=== PATIENT | female | born 1940 | race Caucasian/White ===

== ENCOUNTER → 2016-11-21 | Outpatient (CLI) | payer OTHER ==
--- NOTE | 2016-11-21 11:14 | MA ---
Screening Digital Mammogram Clinical Indications: Routine screening. Personal history of left breast cancer. Sister with breast c ancer. Technique: Standard cephalocaudal and mediolateral oblique projections are obtained. This examinati on was processed by the [employer] computer aided detection system. Comparison: October 2015, 2014, 2013, 2012 and 2011 Breast density: C; The breast tissue is heterogeneously dense, which could obscure detection of small masses. Findings: CAD was reviewed. No suspicious findings are identified. There is stable post therapeutic changes in the left breast. Impression: BI-RADS 2. Benign mammogram.. Recommendation: Routine screening is recommended in one year, as long as physical examination is sal ign in this patient with moderately dense breast parenchyma. [facility] will send a result letter to the patient. Negative mammography should not preclude additional workup of a clinically suspicious finding. The patient's information is entered into a reminder system with a target due date for her next mammo gram.
--- NOTE | 2016-11-21 17:01 | DX ---
Four Views of the Lumbar Spine Standing; AP, Lateral, Flexion and Extension Views Reason for examination: Lower extremity pain possibly related to lumbar pathology. Evaluate for insta bility. Comparison to CT of the abdomen and pelvis performed December 24, 2010. Findings: Vertebral body heights are well maintained. There is a grade 2 anterolisthesis of L4 with respect to L5 estimated at 10 mm. This does not change with flexion or extension. The degree of anter ior displacement is unchanged compared to the CT from 2011. Additionally, there is facet hypertrophy extending from L2-L3 to the L5-S1 level. There is possible canal stenosis at L4-L5 resulting from fac et hypertrophy and spondylolisthesis. This could be further evaluated with MRI as clinically indicate d. Multiple surgical clips are in stable position compared to the 2011 study. Impression: Multilevel spondylosis with a grade 2 anterolisthesis at L4-L5 and possible canal stenosi s at L4-L5.
== END ==
LOC: BMCIMAGING 10:00
DX: Z12.31 Encounter for screening mammogram for malignant neoplasm of breast (principal); Z85.3 Personal history of malignant neoplasm of breast; M47.896 Other spondylosis, lumbar region; M43.16 Spondylolisthesis, lumbar region
CPT/HCPCS: G0202

== ENCOUNTER → 2017-08-25 | Outpatient (CLI) | payer OTHER | LOC: BMCIMAGING 13:29 | PROVIDERS: ATTEND Nurse Practitioner Adult Health | DX: K80.20 Calculus of gallbladder without cholecystitis without obstruction (principal); Z90.5 Acquired absence of kidney ==

== ENCOUNTER → 2017-10-22 | Outpatient (CLI) | payer OTHER | LOC: BMCIMAGING 17:10 | PROVIDERS: ATTEND Family Medicine | DX: M79.671 Pain in right foot (principal); S99.921A Unspecified injury of right foot, initial encounter; X58.XXXA Exposure to other specified factors, initial encounter ==

== ENCOUNTER → 2017-11-04 | Outpatient (CLI) | payer OTHER | LOC: BMCIMAGING 12:20 | PROVIDERS: ATTEND Internal Medicine | DX: Z12.31 Encounter for screening mammogram for malignant neoplasm of breast (principal); Z85.3 Personal history of malignant neoplasm of breast ==

== ENCOUNTER → 2017-11-11 | Outpatient (CLI) | payer OTHER | LOC: BMCIMAGING 10:22 | PROVIDERS: ATTEND Internal Medicine | DX: R92.1 Mammographic calcification found on diagnostic imaging of breast (principal); Z85.3 Personal history of malignant neoplasm of breast ==

== ENCOUNTER → 2017-11-18 | Day surgery (SDC) | payer OTHER ==
[~2017-11-18] MED LIST: BUPIVACAINE 0.25% 30 ML SDV ONE; LIDOCAINE 1% 300 MG/30 ML SDV ONE; THROMBIN (BOVINE) 5,000 UNIT VIAL TP ONE
== END | disposition home or self-care (01) ==
LOC: FIMAGING 07:59
PROVIDERS: ATTEND Internal Medicine
PROC: 0HBT3ZX Excision of Right Breast, Percutaneous Approach, Diagnostic (ICD-10-PCS; principal; 2017-11-18)
DX: D24.1 Benign neoplasm of right breast (principal)

== ENCOUNTER 2018-05-05 10:30 | Emergency (ER) | payer OTHER ==
[2018-05-05] MEDS ORDERED: NS 500 ML IV ONE (11:03)
--- NOTE | 2018-05-05 11:09 | EDPHY ---
H & P Stated Complaint: heart palpitations started 9am today for less 1 min, dizziness and hale Time Seen by Provider: 05/05/18 10:36 HPI/ROS: This patient reports an episode of heart palpitations that were fleeting followed by lightheadedness that has persisted since 8:00 a.m.-when the incident occurred. She explains that she was volunteering up at should talk while dining amador to help reached visiting musician is a and serve breakfast. She climbs stairs the parking lot without any difficulty but then while he walking later with no significant exertion she had abrupt"fluttering"in chest that felt like it lasted for seconds and resolved"like an extra beat or 2". Followed by generalized weakness and lightheadedness. She has had this occur to her periodically in the past but usually the lightheadedness is fleeting and resolves illnesses quickly as the episode of palpitations. She reports that years ago-she estimates 15 years ago or so she had a Holter monitor for the symptoms and was noted to have a"a very common condition that did not alarm the it quality analyst". She reports that she felt well prior to the today's episode. She went initially to [facility] and was sent on to our emergency department for further evaluation due to the nature of the symptoms. Her drove her here by private vehicle. ROS: Constitutional: No recent fevers. She denies any fatigue. HEENT: No URI symptoms. Pulmonary: She denies acute dyspnea. No coughing. Cardiovascular: She reports no leg swelling or pain. She reports that she had mild chest wall tenderness in the morning about an hour prior to the other symptoms but denies any underlying chest pain before since. She reports that the chest wall tenderness felt similar to her tenderness after she had breast surgery for breast cancer. GI: No belly pain. No nausea vomiting. No change in appetite recently. No diarrhea. : No urinary symptoms. No hematuria. Integumentary: No diaphoresis. No skin rash Endocrine: No complaints. Neuro: She reports a pressure-like discomfort in her head similar to prior headaches mild intensity after the onset of the other symptoms. Mild pressure persists. Complete review of symptoms otherwise negative. Source: Patient Exam Limitations: No limitations - Medical/Surgical History PMH: Renal cancer with left nephrectomy Hypothyroidism-on the same dose of Synthroid -112 mcg for quite some time with the normal TSH 2 months ago Breast cancer with mastectomy Other PMH: hypothyroid, reflux, breast ca 2000, kidney ca 2009 - Family History Significant Family History: No: Heart disease - Social History Smoking Status: Former smoker Alcohol Use: None Drug Use: None - Physical Exam Exam: General Appearance: Alert, no distress. Eyes: Pupils equal and round no pallor or injection. ENT, Mouth: Mucous membranes moist. Respiratory: There are no retractions, lungs are clear to auscultation. Cardiovascular: Regular rate and rhythm. No murmur gallop rub. No JVD. No peripheral edema. No leg swelling or tenderness. Gastrointestinal: Abdomen is soft and nontender, no masses, bowel sounds normal. Neurological: GCS 15 Skin: Warm and dry, no rashes. Musculoskeletal: Neck is supple nontender. Extremities are symmetrical, full range of motion. Psychiatric: Mood and affect are normal DIFFERENTIAL DIAGNOSIS: After history and physical exam differential diagnosis was considered for PVCs or other dysrhythmia with associated anxiety/ sympathetic stress response. Tension headache, myocardial ischemic disease, metabolic disarray with associated dysrhythmia, dehydration Constitutional: Initial Vital Signs Temperature (C) 36.6 C 05/05/18 10:42 Heart Rate 92 05/05/18 10:42 Respiratory Rate 18 05/05/18 10:42 Blood Pressure 163/96 H 05/05/18 10:42 O2 Sat (%) 93 05/05/18 10:42 O2 Delivery Mode Room Air Allergies/Adverse Reactions: amoxicillin [Amoxicillin] Allergy (Intermediate, Verified 05/05/18 10:42) cephalexin monohydrate [From Keflex] Allergy (Intermediate, Verified 05/05/18 10 :42) codeine Allergy (Verified 05/05/18 10:42) hydromorphone [From Dilaudid] Allergy (Verified 05/05/18 10:42) Home Medications: Medication Instructions Recorded SYNTHROID 05/30/11 Prevacid 05/05/18 Medical Decision Making - Diagnostics EKG Interpretation: 12 lead EKG performed at 10:46 a.m. Indication: Heart palpitations Sinus rhythm at 91 Intervals: P R of 148, QRS of 84, QTC of 443 [place]: P of 44, QRS of -42, T of 8 ST segments: Normal throughout Overall assessment: sinus rhythm with left anterior fascicular block. ED Course/Re-evaluation: IV, monitor with no significant ectopy while in the emergency department. 500 cc normal saline bolus Studies: CBC is normal, basic metabolic panel normal, troponin negative Patient's lightheadedness resolved over the time she was in emergency department. Prior to discharge she had negative orthostatics. Discussion: This patient experienced fleeting heart palpitations followed by lightheadedness that that was attributable to anxiety related to the initial heart palpitation. She revealed later that she had within the last week discussion with her primary care physician about the potential starting a statin medication for hyperlipidemia. She admits that that has been the back of her mind and likely contributed to anxiety regarding heart when she felt a heart palpitation. No red flag findings today that would suggest cardiac ischemia, pulmonary embolism or other concerning findings. At the patient agrees to follow up with Cardiology for further evaluation. She understands need to return emergency department should she develop any significant recurrence symptoms. - Data Points Laboratory Results: 05/05/18 05/05/18 11:19 11:18 POC Sodium 140 mEq/L mEq/L (135-145) POC Potassium 3.7 mEq/L mEq/L (3.3-5.0) POC Chloride 102.0 mEq/L mEq/L (97-110) POC Total CO2 24 mEq/L mEq/L (22-31) POC BUN 21 mg/dL mg/dL (7-23) POC Creatinine 0.9 mg/dL mg/dL (0.6-1.0) POC Glucose 108 mg/dL H mg/dL (70-100) POC Calcium 9.3 mg/dL mg/dL (8.5-10.4) POC Troponin I 0.00 ng/mL ng/mL (0.00-0.08) Medications Given: Discontinued Medications Acetaminophen (Tylenol) 1,000 mg PO EDNOW ONE Stop: 05/05/18 11:13 Last Admin: 05/05/18 11:39 Dose: Not Given Sodium Chloride (Ns) 500 mls @ 0 mls/hr IV ONCE ONE; Wide Open PRN Reason: Protocol Stop: 05/05/18 11:04 Last Admin: 05/05/18 11:26 Dose: 500 mls Point of Care Test Results: CBC CBC Collection Date 05/05/18 CBC Collection Time 11:10 WBC 5.5 RBC 4.11 HGB 13.0 HCT 39.1 PLT 234 Neut # 3.3 Neut 59.7 LYMPH # 1.7 LYMPH 31.0 Other WBC # 0.5 Other WBC 9.3 MCV 95.1 Chemistry 05/05/18 05/05/18 11:19 11:18 POC Sodium 140 mEq/L mEq/L (135-145) POC Potassium 3.7 mEq/L mEq/L (3.3-5.0) POC Chloride 102.0 mEq/L mEq/L (97-110) POC Total CO2 24 mEq/L mEq/L (22-31) POC BUN 21 mg/dL mg/dL (7-23) POC Creatinine 0.9 mg/dL mg/dL (0.6-1.0) POC Glucose 108 mg/dL H mg/dL (70-100) POC Calcium 9.3 mg/dL mg/dL (8.5-10.4) POC Troponin I 0.00 ng/mL ng/mL (0.00-0.08) Basic Metabolic Panel BMP Collection Date 05/05/18 BMP Collection Time 11:10 Departure - Departure Disposition: Home, Routine, Self-Care Clinical Impression: Heart palpitations, Lightheadedness Condition: Good Instructions: Heart Palpitations (ED) Additional Instructions: Diagnosis: 1. Heart palpitations superior lightheadedness Plan: Drink plenty fluids Call Dr. Guerra-it quality analyst arrange follow-up appointment for further evaluation Return emergency department for any ongoing heart palpitations, or significant symptoms despite plan of good hydration. Referrals: Mary Beth Zavala MD [Primary Care Provider] - As per Instructions Troy Lamar MD [Medical Doctor] - As per Instructions
[2018-05-05] MEDS ORDERED: ACETAMINOPHEN 500 MG TAB PO ONE (11:12)
[2018-05-05 12:11] VITALS: BP 130/89
--- NOTE | 2018-05-05 15:17 | CPEKG ---
Heart Rate: 91 RR Interval: 659 P-R Interval: 148 QRSD Interval: 84 QT Interval: 360 QTC Interval: 443 P [place]: 44 QRS [place]: -42 T Wave [place]: 8 EKG Severity - ABNORMAL ECG - EKG Impression: SINUS RHYTHM EKG Impression: LEFT ANTERIOR FASCICULAR BLOCK EKG Impression: CONSIDER LEFT VENTRICULAR HYPERTROPHY Electronically Signed By: Roldan Forte 07-May-2018 16:37:03
== END 2018-05-05 12:13 | disposition home or self-care (01) ==
LOC: CED 10:30
DX: R00.2 Palpitations (principal); R42 Dizziness and giddiness; E86.9 Volume depletion, unspecified; Z85.3 Personal history of malignant neoplasm of breast; Z87.891 Personal history of nicotine dependence
CPT/HCPCS: 80048-PO; 84484-PO

== ENCOUNTER → 2018-11-16 | Outpatient (CLI) | payer OTHER | LOC: BMCIMAGING 09:10 | PROVIDERS: ATTEND Internal Medicine | DX: Z12.31 Encounter for screening mammogram for malignant neoplasm of breast (principal); Z80.3 Family history of malignant neoplasm of breast; Z85.3 Personal history of malignant neoplasm of breast ==